=== PATIENT | male | born 1985 | race Caucasian/White ===

== ENCOUNTER 2019-11-24 10:49 | Emergency (ER) | payer OTHER, SELFPAY ==
--- NOTE | 2019-11-24 10:53 | ED.GENADULT ---
HPI - General Adult General Chief complaint: Upper Respiratory Infection Stated complaint: Cough/pos flu Time Seen by Provider: 11/24/19 11:07 Source: patient Mode of arrival: ambulatory Limitations: no limitations History of Present Illness HPI narrative: 34-year-old male patient presents to the [facility] with complaint of cough and congestion that started a little bit yesterday and is gotten worse today with a little bit of back aches. Patient states that 1 of his friends as well as his fianc?e are both tested positive for influenza and his fianc?e wanted him tested for the flu today. Patient denies getting a flu shot. Patient denies taking anything for his symptoms so far. Related Data Home Medications Medication Instructions Recorded Confirmed No Home Medications 11/24/19 11/24/19 Allergies Allergy/AdvReac Type Severity Reaction Status Date / Time No Known Allergies Allergy Verified 11/24/19 11:13 Review of Systems Review of Systems: Narrative: CONSTITUTIONAL: Denies fever, chills, or sweats. Positive body aches EYES: Denies visual changes, redness, or discharge. ENT: Denies rhinorrhea, positive congestion, denies sore throat, or otalgia. CARDIOVASCULAR: Denies chest pain, palpitations, or edema. RESPIRATORY: Positive cough, denies dyspnea. GASTROINTESTINAL: Denies abdominal pain, nausea, vomiting, or diarrhea. GENITOURINARY: Denies dysuria or hematuria. SKIN: Denies rash or itching. MUSCULOSKELETAL: Denies back pain, joint pain, or myalgia. NEUROLOGIC: Denies headache, numbness, or weakness. PSYCHIATRIC: Denies anxiety or depression. [facility] Social History Social History Gender identity (if verbalized by the patient): Male Comments At the time of my signature I agree with nursing past medical history, surgical, social, and family history. There is no relevant family history pertinent to the presenting complaint. Exam Narrative: Exam Narrative: GENERAL: Well-appearing, well-nourished, and in no acute distress. HEAD: Normocephalic, atraumatic. No tenderness noted to frontal maxillary sinuses on palpation. EYES: PERRLA and EOMI. ENT: Nares clear, no rhinorrhea or epistaxis. Mucous membranes moist. Posterior pharynx with no erythema, tonsillar margin, exudates or lesions present. Bilateral TMs are clear no erythema or foreign bodies in the canal. NECK: Supple. No lymphadenopathy CHEST: Clear to auscultation. No respiratory distress. HEART: Regular rate and rhythm. No murmur heard. Normal peripheral pulses. ABDOMEN: Soft, nontender, nondistended, normal active bowel sounds. EXTREMITIES: Normal range of motion. No edema. SKIN: Warm, dry, no rash. NEURO: No focal deficits. Alert and oriented x3. Course Vital Signs Vital signs: Vital Signs Temperature 36.6 C 11/24/19 11:02 Pulse Rate 82 11/24/19 11:02 Respiratory Rate 16 11/24/19 11:02 Blood Pressure 134/72 11/24/19 11:02 Pulse Oximetry 100 11/24/19 11:02 Temperature 36.6 C 11/24/19 11:02 Pulse Rate 82 11/24/19 11:02 Respiratory Rate 16 11/24/19 11:02 Blood Pressure 134/72 11/24/19 11:02 Pulse Oximetry 100 11/24/19 11:02 Vital signs reviewed. Medical Decision Making Differential Diagnosis Differential Diagnosis: Differential diagnosis: Allergic rhinitis, chronic sinusitis, tonsillitis, acute sinusitis, infectious mononucleosis, seasonal influenza, pertussis, diphtheria, meningococcal disease, viral syndrome, viral bronchitis, RSV. Notified patient that he is positive today for influenza A. Discussed with him about antivirals as well as the pros and cons of antivirals and side effects. Patient has opted not to do the antivirals at this time. 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
[2019-11-24 11:02] VITALS: BP 134/72; PULSE 82; RESP 16; TEMP 36.6; O2SAT 100
== END 2019-11-24 11:27 | disposition home or self-care (01) ==
PROVIDERS: Emergency Provider Nurse Practitioner Family
DX: J10.1 Influenza due to other identified influenza virus with other respiratory manifestations (principal)
CPT/HCPCS: 87804; 99203; G0463